=== PATIENT | female | born 1980 | race American Indian/Alaskan Native ===

== ENCOUNTER 2017-04-20 12:04 | Emergency (ER) | payer OTHER ==
[2017-04-20 12:54] LABS: BUN/Creatinine Ratio 16; Blood Urea Nitrogen 8 mg/dL (7-17); Calcium 9.7 mg/dL (8.4-10.2); Hemolysis Index 10
[2017-04-20 12:55] LABS: Hemoglobin 11.7 gm/dl (10.1-14.3); Mean Corpuscular HGB Conc 32 % (30-34); Mean Corpuscular Volume 72 fl (79-97); Platelet Count 238 K/mm3 (140-440); Red Blood Count 5.12 M/mm3 (3.65-5.03); Red Cell Distribution Width 15.8 % (13.2-15.2)
[2017-04-20 13:03] LABS: Bilirubin,Urine NEG (Negative); Blood,Urine MOD (Negative); Color,Urine Yellow (Yellow); Mucus,Urine FEW /HPF; Nitrite,Urine NEG (Negative); Protein,Urine <15 mg/dL mg/dL (Negative); Urobilinogen,Urine < 2.0 mg/dL (<2.0)
[2017-04-20 13:17] LABS: Mean Corpuscular Hemoglobin 23 pg (28-32)
--- NOTE | 2017-04-20 15:03 | Ultrasound Report ---
ULTRASOUND OB LESS THAN 14 WEEKS FETUS ULTRASOUND OB TRANSVAGINAL HISTORY: Vaginal bleeding during . COMPARISON: None. TECHNIQUE: Transabdominal and transvaginal ultrasound with color doppler interrogation. FINDINGS: Uterus: The uterus is anteverted and measures 9.1 x 5.3 x 6.8 cm. No uterine mass. The cervix is unremarkable. Endometrium: The endometrium is thickened measuring 16 mm. No intrauterine is visualized. Right ovary: 3.9 x 2.8 x 3.4 cm. No abnormality. Left ovary: 3.0 x 1.5 x 1.9 cm. There is a masslike lesion containing a gestational sac and pole in the left adnexal region/cul-de-sac which presumably represents an ectopic in the left fallopian tube. heart rate measures 137 bpm. [place]-rump length measures 11 mm which correlates with a 7 week, 2 day . There is mild to moderate fluid in the cul-de-sac. Normal color doppler interrogation. IMPRESSION: No intrauterine is visualized. Viable ectopic in the left adnexal region as outlined above. There is mild to moderate free fluid in the cul-de-sac which could indicate a ruptured ectopic. These findings were discussed with Dr. Barahona in the emergency department at 1450 hrs.
[2017-04-20] MEDS ORDERED: NACL 0.9% 1000 ML 1,000 ML IV ONE (15:27)
--- NOTE | 2017-04-20 15:33 | Emergency Department Report ---
ED Female HPI - General Chief complaint: Vaginal Bleeding Stated complaint: VAG BLEEDING Time Seen by Provider: 04/20/17 15:20 Source: patient Mode of arrival: Ambulatory Limitations: No Limitations - History of Present Illness Initial comments: Patient is 36 years old female with no significant past medical history presented today with left lower quadrant pain pelvic pain and vaginal spotting starting this morning. Patient denied any syncopal episode. No nausea or vomiting. Patient stated this is her first . MD Complaint: vaginal bleeding -: Sudden, This morning Radiation: non-radiating Severity: moderate Severity scale (0 -10): 5 Quality: sharp Are you Now?: Yes Associated Symptoms: vaginal bleeding - Related Data Home Medications Medication Instructions Recorded Confirmed Last Taken No Known Home Medications [No 04/20/17 04/20/17 Unknown Reported Home Medications] Allergies Allergy/AdvReac Type Severity Reaction Status Date / Time No Known Allergies Allergy Unverified 04/20/17 12:16 ED Review of Systems ROS: Stated complaint: VAG BLEEDING Other details as noted in HPI Comment: All other systems reviewed and negative Constitutional: denies: chills, fever ENT: denies: ear pain, hearing loss Respiratory: denies: cough, orthopnea, shortness of breath, SOB with exertion, SOB at rest Cardiovascular: denies: chest pain, palpitations, dyspnea on exertion Genitourinary: denies: urgency, dysuria, frequency, hematuria Neurological: denies: headache, weakness, numbness, paresthesias ED Past Medical Hx - Past Medical History Previous Medical History?: No - Surgical History Past Surgical History?: No - Social History Smoking Status: Current Every Day Smoker Substance Use Type: Alcohol - Medications Home Medications: Home Medications Medication Instructions Recorded Confirmed Last Taken Type No Known Home Medications [No 04/20/17 04/20/17 Unknown History Reported Home Medications] ED Physical Exam - General Limitations: No Limitations General appearance: alert, in no apparent distress, anxious - Head Head exam: Present: atraumatic, normocephalic, normal inspection - Eye Eye exam: Present: normal appearance, PERRL - ENT ENT exam: Present: normal exam, normal orophraynx, mucous membranes moist, TM's normal bilaterally - Neck Neck exam: Present: normal inspection, full ROM. Absent: tenderness, meningismus, lymphadenopathy - Respiratory Respiratory exam: Present: normal lung sounds bilaterally. Absent: respiratory distress, wheezes, rales, chest wall tenderness, accessory muscle use, decreased breath sounds, prolonged expiratory - Cardiovascular Cardiovascular Exam: Present: regular rate, normal rhythm, normal heart sounds - GI/Abdominal GI/Abdominal exam: Present: soft, tenderness (left lower quadrant). Absent: distended, guarding, rebound, rigid, normal bowel sounds, diminished bowel sounds, organomegaly, mass, bruit, pulsatile mass, hernia - Extremities Exam Extremities exam: Present: normal inspection, full ROM, normal capillary refill - Back Exam Back exam: Present: normal inspection, full ROM. Absent: tenderness, CVA tenderness (R), CVA tenderness (L), muscle spasm, paraspinal tenderness, vertebral tenderness - Neurological Exam Neurological exam: Present: alert, oriented X3, CN II-XII intact, normal gait, reflexes normal. Absent: abnormal gait, motor sensory deficit - Skin Skin exam: Present: warm, intact, normal color. Absent: cyanosis, diaphoretic ED Course Vital Signs 04/20/17 04/20/17 04/20/17 12:14 16:39 16:55 Temperature 98.4 F 98.9 F 99.1 F Pulse Rate 95 H 86 90 Respiratory 18 16 20 Rate Blood Pressure 153/77 120/80 Blood Pressure 101/70 [Right] O2 Sat by Pulse 100 100 100 Oximetry - Reevaluation(s) Reevaluation #1: 04/20/17 18:07 Dr. Bonilla came down to see the patient after she called the OR team. Patient stated that she does not want to stand his hospital and she will and Ale[facility] facial number to [facility]. When asked about the reason for leaving patient stated that and her did Hospital Review and found that [facility] is the best Hospital and they want to go over there. I offered the patient to initiate a transfer to [facility] but patient does not want to stay and she wanted to sign AGAINST MEDICAL ADVICE. I explained to the patient the seriousness of her decision and the possibility of deterioration and , patient and stated that they are willing to take the risk. Patient is alert oriented 3, able to make a sound decision. She is not under any influence off substance or medication. ED Medical Decision Making - Lab Data Result diagrams: 04/20/17 12:28 04/20/17 12:28 - Radiology Data Radiology results: report reviewed Referring Physician: ED DOC Patient Name: TIN CALL Date of : 1980 Sex: Female Report Date: 2017-04-20 Report Status: Finalized Findings [facility] [address] [place] [address] Ultrasound Report Signed Patient: TIN CALL MR#: [id number] : 1980 Acct:[id number] Age/Sex: 36 / F ADM Date: 04/20/17 Loc: ED Attending Dr: Ordering Physician: CELESTE SKY MD Date of Service: 04/20/17 Procedure(s): US OB transvaginal Accession Number(s): [id number] cc: CELESTE SKY MD ULTRASOUND OB LESS THAN 14 WEEKS FETUS ULTRASOUND OB TRANSVAGINAL HISTORY: Vaginal bleeding during . COMPARISON: None. TECHNIQUE: Transabdominal and transvaginal ultrasound with color doppler interrogation. FINDINGS: Uterus: The uterus is anteverted and measures 9.1 x 5.3 x 6.8 cm. No uterine mass. The cervix is unremarkable. Endometrium: The endometrium is thickened measuring 16 mm. No intrauterine is visualized. Right ovary: 3.9 x 2.8 x 3.4 cm. No abnormality. Left ovary: 3.0 x 1.5 x 1.9 cm. There is a masslike lesion containing a gestational sac and pole in the left adnexal region/cul-de-sac which presumably represents an ectopic in the left fallopian tube. heart rate measures 137 bpm. [place]-rump length measures 11 mm which correlates with a 7 week, 2 day . There is mild to moderate fluid in the cul-de-sac. Normal color doppler interrogation. IMPRESSION: No intrauterine is visualized. Viable ectopic in the left adnexal region as outlined above. There is mild to moderate free fluid in the cul-de-sac which could indicate a ruptured ectopic. These findings were discussed with Dr. Barahona in the emergency department at 1450 hrs. Transcribed By: TTR Dictated By: MARKELL BENJAMIN JR, MD Electronically Authenticated By: MARKELL BENJAMIN JR, MD Signed Date/Time: 04/20/17 1458 DD/ 1449 TD/TT: 04/20/17 1458 - Medical Decision Making 04/20/17 15:30Emergency Page was made to Dr. Feli Bonilla. Discussed with Dr. Feli Bonilla, I informed the patient and the results of the ultrasound, Dr. Bonilla stated that she is on her way to see the patient and she called for the OR team. Critical care attestation.: If time is entered above; I have spent that time in minutes in the direct care of this critically ill patient, excluding procedure time. ED Disposition Clinical Impression: Ectopic Disposition: DC-07 LEFT AGAINST MED ADVICE Is pt being admited?: No Condition: Stable Instructions: Ectopic (ED) Additional Instructions: Please go straight to the hospital of your preference for this emergency situation. Referrals: PRIMARY CARE, [Primary Care Provider] - 3-5 Days
[2017-04-20] MEDS ORDERED: NACL 0.9% 500 ML 500 ML IV ONE (15:38)
--- NOTE | 2017-04-20 18:11 | History and Physical Report ---
History of Present Illness Date of examination: 04/20/17 Date of admission: 04/20/17 Chief complaint: vaginal bleeding History of present illness: 36 yo LMP 04/20/17 states that she took 3-4 test several days ago and had +. She noticed bleeding and spotting and then became concerned and came to ER for evaluation. She denies any pain admits to cramping. Denies n,v,f chills. this is a wanted Past History Past Medical History: no pertinent history Past Surgical History: no surgical history Family/Genetic History: none Social history: . denies: smoking, alcohol abuse, prescription drug abuse Medications and Allergies Allergies Allergy/AdvReac Type Severity Reaction Status Date / Time No Known Allergies Allergy Unverified 04/20/17 12:16 Home Medications Medication Instructions Recorded Confirmed Last Taken Type No Known Home Medications [No 04/20/17 04/20/17 Unknown History Reported Home Medications] Review of Systems All systems: negative Genitourinary: vaginal bleeding - Vital Signs Vital signs: Vital Signs Temp Pulse Resp BP Pulse Ox 98.4 F 95 H 18 153/77 100 04/20/17 12:14 04/20/17 12:14 04/20/17 12:14 04/20/17 12:14 04/20/17 12:14 Temp Pulse Resp BP Pulse Ox 99.1 F 90 20 120/80 100 04/20/17 16:55 04/20/17 16:55 04/20/17 16:55 04/20/17 16:55 04/20/17 16:55 - Physical Exam Breasts: Positive: deferred Cardiovascular: Regular rate, Normal S1 Lungs: Positive: Clear to auscultation, Normal air movement Abdomen: Positive: normal appearance, soft, normal bowel sounds. Negative: distention, tenderness, guarding Genitourinary (Female): Positive: normal external genitalia, normal perenium Vulva: both: normal Vagina: Positive: other (Patient declined pelvic exam ) Extremities: Positive: normal Deep Tendon Reflex Grade: Normal +2 Results Result Diagrams: 04/20/17 12:28 04/20/17 12:28 Abnormal lab results 04/20/17 04/20/17 04/20/17 Range/Units 12:28 12: 12: RBC 5.12 H (3.65-5.03) M/mm3 MCV 72 L (79-97) fl MCH 23 L (28-32) pg RDW 15.8 H (13.2-15.2) % Creatinine 0.5 L (0.7-1.2) mg/dL HCG, Quant 24124 H (0-4) mIU/mL Urine WBC (Auto) (0.0-6.0) /HPF Crossmatch 04/20/17 04/20/17 Range/Units 16:00 Unknown RBC (3.65-5.03) M/mm3 MCV (79-97) fl MCH (28-32) pg RDW (13.2-15.2) % Creatinine (0.7-1.2) mg/dL HCG, Quant (0-4) mIU/mL Urine WBC (Auto) 16.0 H (0.0-6.0) /HPF Crossmatch See Detail All other labs normal. Ultrasound: report reviewed Assessment and Plan A/P Ectopic 7 weeks gestation on the left Recommended surgery for salpingectomy ( exploratory) 2 U prbc requested CBC, type and screen I discused with patient with heart beat I would strongly recommend surgery as opposed to methotrexate. patient stated that she is uncomfortable with services here and she found another hospital to assess for second opinion
[2017-04-20 18:48] VITALS: BP 117/77
== END 2017-04-20 18:45 | disposition left against medical advice (07) ==
LOC: ED 12:04
DX: O00.90 Unspecified ectopic pregnancy without intrauterine pregnancy (principal); F17.200 Nicotine dependence, unspecified, uncomplicated; Z3A.01 Less than 8 weeks gestation of pregnancy
CPT/HCPCS: 36415; 36430; 76801; 76817; 80048; 81001; 84702; 85027; 86850; 86900; 86901; 86920; 96360; 99284; J7030